=== PATIENT | female | born 1985 | race Caucasian/White ===

== ENCOUNTER 2021-07-19 10:59 | Emergency (ER) | payer BC ==
[2021-07-19 12:55] LABS: #Eosinphils 0.1 10x3/uL (0.0-0.5); #Monocytes 0.6 10x3/uL (0.0-1.1); #Neutrophils 5.3 10x3/uL (1.5-8.4); %Basophils 0.2 % (0.0-2.0); %Eosinophils 1.2 % (0.0-6.0); %Lymphocytes 28.6 % (18.0-47.0); %Monocytes 6.8 % (0.0-10.0); %Neutrophils 62.8 % (40.0-75.0); Hemoglobin 12.5 g/dL (12.0-15.5); Mean Corpuscular HGB CONC 32.2 g/dL (32.0-36.0); Mean Corpuscular Hemoglobin 29.2 pg (27.0-33.0); Mean Corpuscular Volume 90.7 fl (81.6-98.3); Platelet Count 216 10x3/uL (150-450); RBC Distribution Width 15.8 % (11.5-14.5); Red Blood Cell (RBC) Count 4.28 10x6/uL (3.90-5.03); White Blood Cell (WBC) Count 8.5 10x3/uL (3.5-10.5)
[2021-07-19 13:06] LABS: ALT (SGPT) 26 U/L (8-55); AST (SGOT) 19 U/L (5-34); Albumin 4.1 g/dL (3.5-5.0); Alkaline Phosphatase 78 U/L (40-110); Anion Gap 13 mmol/L (10-20); BUN (Urea Nitrogen) 17 mg/dL (7.0-18.7); Bilirubin, Total 0.4 mg/dL (0.2-1.2); Calc. Creatinine Clearance 0 mL/min (70-130); Carbon Dioxide 25 mmol/L (22-29); Chloride 106 mmol/L (98-107); Globulin 2.1 g/dL (2.4-3.5); Glucose 85 mg/dL (70-105); Potassium 4.3 mmol/L (3.5-5.1); Protein, Total 6.2 g/dL (6.0-8.3); Sodium 140 mmol/L (136-145)
[2021-07-19] MEDS ORDERED: Thiamine 100 MG TAB ONE (13:21)
[2021-07-19] MEDS ORDERED: Folic Acid 1 MG TAB ONE (13:21)
[2021-07-19 13:32] LABS: Bilirubin Neg (Negative); Blood, Urine Negative (Negative); Clarity Clear (Clear); Glucose, Urine (Dipstick) Normal (Negative); Ketone, Urine 50 mg/dL (Negative); Leukocyte Negative (Negative); Nitrite Negative (Negative); Protein, Urine (Dipstick) Negative (Neg-Trace); Urobilinogen Normal mg/dL (Less than 2)
[2021-07-19] MEDS ORDERED: Acetaminophen 500 MG TAB ONE (13:40)
== END 2021-07-19 15:07 | disposition home or self-care (01) ==
LOC: CSHERS 10:59
DX: R53.1 Weakness (principal); J45.909 Unspecified asthma, uncomplicated; G43.909 Migraine, unspecified, not intractable, without status migrainosus; E66.9 Obesity, unspecified
CPT/HCPCS: 71045; 80053; 81003; 84484; 85025; 93005

== ENCOUNTER 2022-01-02 19:11 | Observation (INO) | payer BC ==
[2022-01-02] MEDS ORDERED: Morphine 4 MG/ML VIAL ONE (20:05)
[2022-01-02] MEDS ORDERED: Promethazine HCl 25 MG/ML VIAL ONE (20:06)
[2022-01-02 20:40] LABS: #Eosinphils 0.2 10x3/uL (0.0-0.5); #Monocytes 0.6 10x3/uL (0.0-1.1); #Neutrophils 4.5 10x3/uL (1.5-8.4); %Basophils 0.4 % (0.0-2.0); %Eosinophils 1.9 % (0.0-6.0); %Monocytes 7.2 % (0.0-10.0); %Neutrophils 50.3 % (40.0-75.0); Hemoglobin 13.3 g/dL (12.0-15.5); Mean Corpuscular HGB CONC 33.6 g/dL (32.0-36.0); Mean Corpuscular Hemoglobin 30.6 pg (27.0-33.0); Mean Corpuscular Volume 91.2 fl (81.6-98.3); Platelet Count 240 10x3/uL (150-450); Red Blood Cell (RBC) Count 4.34 10x6/uL (3.90-5.03); White Blood Cell (WBC) Count 8.9 10x3/uL (3.5-10.5)
[2022-01-02 20:42] LABS: Bilirubin Neg (Negative); Blood, Urine Negative (Negative); Clarity Clear (Clear); Glucose, Urine (Dipstick) Normal (Negative); Ketone, Urine 150 mg/dL (Negative); Leukocyte Negative (Negative); Nitrite Negative (Negative); Protein, Urine (Dipstick) Negative (Neg-Trace); Specific Gravity, Urine 1.025 (1.002-1.036); Urobilinogen Normal mg/dL (Less than 2)
[2022-01-02 20:59] LABS: ALT (SGPT) 12 U/L (8-55); AST (SGOT) 12 U/L (5-34); Albumin 4.3 g/dL (3.5-5.0); Alkaline Phosphatase 62 U/L (40-110); Anion Gap 17 mmol/L (10-20); BUN (Urea Nitrogen) 13 mg/dL (7.0-18.7); Bilirubin, Total 0.4 mg/dL (0.2-1.2); Calc. Creatinine Clearance 0 mL/min (70-130); Calcium 9.8 mg/dL (7.8-10.44); Carbon Dioxide 25 mmol/L (22-29); Chloride 104 mmol/L (98-107); Estimated GFR 98; Globulin 2.2 g/dL (2.4-3.5); Glucose 75 mg/dL (70-105); Lipase 18 U/L (8-78); Potassium 4.3 mmol/L (3.5-5.1); Protein, Total 6.5 g/dL (6.0-8.3); Sodium 142 mmol/L (136-145)
[2022-01-02] MEDS ORDERED: Ketorolac Tromethamine 30 MG/ML VIAL ONE (21:53)
[2022-01-03] MEDS ORDERED: Morphine 2 MG/ML VIAL SLOW IVP PRN (00:13)
[2022-01-03] MEDS ORDERED: Enoxaparin Sodium 40 MG/0.4 ML SYRINGE SC SCH ×2 (01:00→21:00)
[2022-01-03] MEDS ORDERED: 1/2 NS w/KCL 20 mEq 1,000 ML IV SCH (01:00)
[2022-01-03 01:08] VITALS: BMI 30.5
[2022-01-03] MEDS: Morphine 4 MG/ML VIAL SLOW IVP PRN ×3 (01:43→15:27)
[2022-01-03] MEDS: D5 1/2 NS w/20 mEq KCL 1,000 ML IV SCH ×2 (02:15→10:24)
[2022-01-03] MEDS ORDERED: Ketorolac Tromethamine 30 MG/ML VIAL IVP SCH (04:14)
[2022-01-03 06:09] LABS: ALT (SGPT) 8 U/L (8-55); AST (SGOT) 12 U/L (5-34); Albumin 3.3 g/dL (3.5-5.0); Alkaline Phosphatase 51 U/L (40-110); Anion Gap 11 mmol/L (10-20); BUN (Urea Nitrogen) 12 mg/dL (7.0-18.7); Bilirubin, Total 0.3 mg/dL (0.2-1.2); Calc. Creatinine Clearance 136 mL/min (70-130); Calcium 8.6 mg/dL (7.8-10.44); Carbon Dioxide 23 mmol/L (22-29); Chloride 109 mmol/L (98-107); Estimated GFR 115; Globulin 1.9 g/dL (2.4-3.5); Glucose 95 mg/dL (70-105); Potassium 3.8 mmol/L (3.5-5.1); Protein, Total 5.2 g/dL (6.0-8.3); Sodium 139 mmol/L (136-145)
[2022-01-03 07:30] LABS: Hemoglobin 11.8 g/dL (12.0-15.5); Mean Corpuscular HGB CONC 33.4 g/dL (32.0-36.0); Mean Corpuscular Hemoglobin 30.6 pg (27.0-33.0); Mean Corpuscular Volume 91.5 fl (81.6-98.3); Mean Platelet Volume 11.4 fl (7.4-10.4); Platelet Count 206 10x3/uL (150-450); RBC Distribution Width 13.2 % (11.5-14.5); Red Blood Cell (RBC) Count 3.86 10x6/uL (3.90-5.03); White Blood Cell (WBC) Count 7.1 10x3/uL (3.5-10.5)
[2022-01-03 07:47] LABS: SARS-CoV-2 NAA Rapid Test Not Detected (NotDetected)
[2022-01-03] MEDS: Pantoprazole 40 MG VIAL IVP SCH (09:15)
[2022-01-03 09:40] LABS: MDiff Complete? YES; Manual Diff?? YES
[2022-01-03 09:42] LABS: Band 3 % (5-11); Eosinophils 7 % (0-10); Lymphocytes 61 % (21-51); Monocytes 3 % (0-10); Neutrophil 24 % (42-75); Reactive Lymphocytes 2 % (0-10)
[2022-01-03 09:43] LABS: Platelet Morphology Comment Appears Adequate
[2022-01-03] MEDS ORDERED: Magnevist 469MG/ML 20 ML VIAL ONE (13:54)
[2022-01-03] MEDS: Ondansetron PF 4 MG/2 ML Vial IVP PRN (15:27)
[2022-01-03] MEDS ORDERED: Nicotine 14 MG PATCH TD SCH (17:15)
[2022-01-03] MEDS ORDERED: Fentanyl 100 MCG/2 ML VIAL ONE ×3 (17:25→18:55)
[2022-01-03] MEDS ORDERED: PROPOFOL 20 ML ONE (17:25)
[2022-01-03] MEDS ORDERED: Lidocaine 1% PF 5 ML VIAL ONE (17:26)
[2022-01-03] MEDS ORDERED: Rocuronium Bromide 10 MG/ML (10ML VIAL) ONE (17:26)
[2022-01-03] MEDS ORDERED: Famotidine/PF 20 mg/2ml Vial ONE (17:28)
[2022-01-03] MEDS ORDERED: EPINEPHrine 1 MG/ML AMP ONE (17:31)
[2022-01-03] MEDS ORDERED: Bupivacaine 0.25% HCL 30 ML VIAL ONE (17:31)
[2022-01-03] MEDS ORDERED: Iopamidol 30 ML ONE (17:32)
[2022-01-03] MEDS ORDERED: Ondansetron PF 4 MG/2 ML Vial ONE (18:17)
[2022-01-03] MEDS ORDERED: Dexamethasone 4 mg/ml Vial ONE (18:17)
[2022-01-03] MEDS ORDERED: PACU-Morphine 4MG/ML VIAL SLOW IVP PRN (18:18)
[2022-01-03] MEDS ORDERED: Meperidine HCl/PF 25 MG/ML VIAL SLOW IVP PRN (18:18)
[2022-01-03] MEDS ORDERED: Promethazine HCl 25 MG/ML VIAL IVPB PRN (18:18)
[2022-01-03] MEDS ORDERED: Ketorolac Tromethamine 30 MG/ML VIAL ONE (18:27)
[2022-01-03] MEDS ORDERED: Glycopyrrolate 0.2 MG/ML 5 ML SYRINGE ONE (18:29)
[2022-01-04] MEDS ORDERED: Mag-Al 1200 mg/1200 mg/30 ML UDCUP PO PRN (00:19)
[2022-01-04] MEDS: Morphine 4 MG/ML VIAL SLOW IVP PRN ×2 (04:25→11:36)
[2022-01-04 04:52] LABS: Anion Gap 14 mmol/L (10-20); BUN (Urea Nitrogen) 7 mg/dL (7.0-18.7); Calc. Creatinine Clearance 138 mL/min (70-130); Calcium 9.2 mg/dL (7.8-10.44); Carbon Dioxide 23 mmol/L (22-29); Chloride 106 mmol/L (98-107); Estimated GFR 115; Glucose 142 mg/dL (70-105); Magnesium 1.9 mg/dL (1.6-2.6); Phosphorus 4.6 mg/dL (2.3-4.7); Potassium 4.3 mmol/L (3.5-5.1); Sodium 139 mmol/L (136-145)
[2022-01-04] MEDS ORDERED: Simethicone Chewable 80 MG TAB PO PRN (07:42)
[2022-01-04] MEDS: D5 1/2 NS w/20 mEq KCL 1,000 ML IV SCH ×2 (07:58→08:57)
[2022-01-04] MEDS: Pantoprazole 40 MG VIAL IVP SCH (08:42)
[2022-01-04] MEDS: Ondansetron PF 4 MG/2 ML Vial IVP PRN (11:36)
[2022-01-04 13:06] VITALS: TEMP 98
[2022-01-04] MEDS ORDERED: HYDROcodone/Acetaminophen 5/325 mg Tablet PO PRN (14:59)
[2022-01-04 17:15] VITALS: BP 105/51
== END 2022-01-04 17:30 | disposition home or self-care (01) ==
LOC: CSHERS 19:11 → CSHTELE 22:03 → UNDOADMOB 01-03 00:40 → CSHTELE 01-03 00:40
PROVIDERS: ADMIT Family Medicine; ATTEND Family Medicine
PROC: 0FT44ZZ Resection of Gallbladder, Percutaneous Endoscopic Approach (ICD-10-PCS; principal; 2022-01-03)
PROC: BF03YZZ Plain Radiography of Gallbladder and Bile Ducts using Other Contrast (ICD-10-PCS; 2022-01-03)
DX: K80.12 Calculus of gallbladder with acute and chronic cholecystitis without obstruction (principal); K21.9 Gastro-esophageal reflux disease without esophagitis; K59.00 Constipation, unspecified; G43.909 Migraine, unspecified, not intractable, without status migrainosus; J45.20 Mild intermittent asthma, uncomplicated; E16.2 Hypoglycemia, unspecified; Z79.899 Other long term (current) drug therapy; Z88.5 Allergy status to narcotic agent; Z88.8 Allergy status to other drugs, medicaments and biological substances; Z98.84 Bariatric surgery status; Z90.710 Acquired absence of both cervix and uterus; Z98.890 Other specified postprocedural states
CPT/HCPCS: 36415; 36416; 47532; 71045; 74183; 76705; 80048; 80053; 81003; 83690; 83735; 84100; 84484; 85025; 88304; 93005; 96372; 96375; 96376; A9579; C1713; C9113; G0378; J0171; J1100; J1610; J1650; J1885; J2270; J2405; J2550; J2704; J3010; J3480; Q9967; S0020; S0028; U0002

== ENCOUNTER 2024-03-07 18:55 | Emergency (ER) | payer BC | END 2024-03-07 21:03 | disposition left against medical advice (07) | LOC: CSHERS 18:55 | DX: Z53.21 Procedure and treatment not carried out due to patient leaving prior to being seen by health care provider (principal) ==

== ENCOUNTER 2024-06-23 17:53 | Outpatient (CLI) | payer BC | END 2024-06-23 17:54 | disposition home or self-care (01) | LOC: CSHRAD 17:53 | PROVIDERS: ATTEND Nurse Practitioner Family | DX: S39.92XA Unspecified injury of lower back, initial encounter (principal); S32.2XXA Fracture of coccyx, initial encounter for closed fracture | CPT/HCPCS: 72220 ==